=== PATIENT | female | born 1955 | race Caucasian/White ===

== ENCOUNTER → 2018-10-24 | Outpatient (CLI) | payer OTHER ==
[~2018-10-24] MED LIST: ACIDOPHILUS1 EAC3 PO; B-100 COMPLEX1 EAC1 PO; BENICAR PO; BENICAR20 MG PO; CALCIUM-MAG-ZI1 EACH PO; DIABETA PO; DULERA 100 MCG/13 GM IH; DULERA 100 MCG/13 GM INH; FLONASE; GLUCOPHAGE1000 MG PO; HYDROCODONE-AP1 EAC6 PO; MACRODANTIN100 MG PO; METFORMIN PO; MOBIC15 MG; MULTIVITAMINS PO; POTASSIUM PO; POTASSIUM20 PO; PROTONIX40 M2 PO; TRAMADOL 50 MG50 MG PO; TRIAMTERENE-HC1 EAC3 PO; VITAMIN D35000 UNI1 PO; ZANTAC 150MG T150 M1 PO; ZYRTEC; [UNRECOGNIZED DRUG - OTHER]; [UNRECOGNIZED DRUG - OTHER]; [UNRECOGNIZED DRUG - OTHER] PO; digestive enzymes; vitamin D
== END ==
LOC: CAT 09:59
DX: Z13.6 Encounter for screening for cardiovascular disorders (principal); E78.00 Pure hypercholesterolemia, unspecified; I25.10 Atherosclerotic heart disease of native coronary artery without angina pectoris